=== PATIENT | male | born 1995 | race American Indian/Alaskan Native ===

== ENCOUNTER 2019-12-14 10:26 | Emergency (ER) | payer SELFPAY ==
[2019-12-14 10:35] VITALS: BP 126/77
[2019-12-14] MEDS ORDERED: BUTALB/ACETAMINOPHEN/CAFFEINE TAB PO ONE (11:52)
--- NOTE | 2019-12-14 11:56 | Emergency Department Report ---
ED Headache HPI - General Chief Complaint: Headache Stated Complaint: LEFT SIDED FACIAL PAIN Time Seen by Provider: 12/14/19 11:25 Source: patient Exam Limitations: no limitations - History of Present Illness Initial Comments: This is a 24-year-old male with a history of seizures who who presents to the ED complaining of left-sided head pain x1 week. Patient states about a week ago sharp pain comes and lasts for about 5 seconds at a time and goes away and then comes back throughout the day. Patient states that today is at its worst. Patient states his pain is lasting about 10 seconds before going away. Patient denies any vomiting or nausea or blurry vision or dizziness. Patient denies any trauma. Patient states he has had 3 seizures in the past 3 years and is not on medication. Patient states she does not have a primary care physician or neurologist that he follows up with. Patient denies any other medical condition Timing/Duration: 1 week Quality: sharp, throbbing Head Injury Location: temporal (left) Recent Head Trauma: no recent headache/trauma Allergies/Adverse Reactions: Allergies No Known Allergies Allergy (Unverified 12/14/19 11:58) Home Medications: Ambulatory Orders Butalb/Acetaminophen/Caffeine [Fioricet 50-300-40 mg CAP] 1 cap PO Q8HR #30 cap 12/14/19 ED Review of Systems ROS: Stated complaint: LEFT SIDED FACIAL PAIN Other details as noted in HPI Comment: All other systems reviewed and negative ED Past Medical Hx - Past Medical History Previous Medical History?: Yes Additional medical history: Seizure - Surgical History Past Surgical History?: No - Social History Smoking Status: Never Smoker Substance Use Type: None - Medications Home Medications: Home Medications Medication Instructions Recorded Confirmed Last Taken Type Butalb/Acetaminophen/Caffeine 1 cap PO Q8HR #30 cap 12/14/19 Unknown Rx [Fioricet 50-300-40 mg CAP] ED Physical Exam - General Limitations: No Limitations General appearance: alert, in no apparent distress - Head Head exam: Present: atraumatic, normocephalic - Eye Eye exam: Present: normal appearance, PERRL Pupils: Present: normal accommodation - ENT ENT exam: Present: mucous membranes moist - Neck Neck exam: Present: normal inspection, full ROM. Absent: tenderness - Respiratory Respiratory exam: Present: normal lung sounds bilaterally. Absent: respiratory distress - Cardiovascular Cardiovascular Exam: Present: regular rate, normal rhythm. Absent: systolic murmur, diastolic murmur, rubs, gallop - GI/Abdominal GI/Abdominal exam: Present: soft, normal bowel sounds - Rectal Rectal exam: Present: deferred - Extremities Exam Extremities exam: Present: normal inspection - Back Exam Back exam: Present: normal inspection - Neurological Exam Neurological exam: Present: alert, oriented X3, CN II-XII intact, normal gait - Expanded Neurological Exam Expanded Patient oriented to: Present: person, place, time Speech: Present: fluid speech Cerebellar function: Finger to Nose: Normal Sensory exam: Upper Extremity Light Touch: Normal, Lower Extremity Light Touch: Normal Motor strength exam: RUE: 5, LUE: 5, RLE: 5, LLE: 5 Best Eye Response ([place]): (4) open spontaneously Best Motor Response ([place]): (6) obeys commands Best Verbal Response ([place]): (5) oriented [place] Total: 15 - Psychiatric Psychiatric exam: Present: normal affect, normal mood - Skin Skin exam: Present: warm, dry, intact, normal color. Absent: rash ED Course Vital Signs 12/14/19 10:34 Temperature 97.6 F Pulse Rate 69 Respiratory 16 Rate Blood Pressure 126/77 [Right] O2 Sat by Pulse 100 Oximetry ED Medical Decision Making - Radiology Data Radiology results: report reviewed, image reviewed CT head/brain wo con INDICATION / CLINICAL INFORMATION: 24 years Male; left sided sharp pain. TECHNIQUE: Routine CT head without contrast. All CT scans at this location are performed using CT dose reduction for ALARA by means of automated exposure control. COMPARISON: None. FINDINGS: BRAIN / INTRACRANIAL CONTENTS: No acute hemorrhage, mass effect, midline shift, hydrocephalus, or acute, large territorial infarct. No chronic infarct or atrophy appreciated. No significant white matter abnormality. CRANIOCERVICAL JUNCTION: No significant abnormality. ORBITS: No significant abnormality of visualized orbits. SINUSES / MASTOIDS: No significant abnormality the visualized paranasal sinuses or mastoid air cells. ADDITIONAL FINDINGS: None. IMPRESSION: 1. No focal mass, hemorrhage, hydrocephalus, or acute, large territorial infarct. Signer Name: Hunter Mclain MD, III Signed: 12/14/2019 12:26 PM Workstation Name: [id number] Transcribed By: HR Dictated By: Hunter Mclain MD Electronically Authenticated By: Hunter Mclain MD Signed Date/Time: 12/14/19 1226 - Medical Decision Making 24-year-old male presents with headache. CT scan shows no acute findings see report above Discussed findings with the patient. Discussed with patient to follow-up with the neurologist as referred for management of his seizures. Patient had no recent seizures and has no signs of any other symptoms. Discussed with patient if any worsening symptoms may return to the ED immediately. Patient had no neurological deficit and is to be discharged to follow-up with primary care physician. Critical care attestation.: If time is entered above; I have spent that time in minutes in the direct care of this critically ill patient, excluding procedure time. ED Disposition Clinical Impression: Headache Disposition: DC-01 TO HOME OR SELFCARE Is pt being admited?: No Does the pt Need Aspirin: No Condition: Stable Instructions: Migraine Headache (ED), Tension Headache (ED), Acute Headache (ED) Additional Instructions: Make sure to follow up with the primary care physician as discussed. Take all your medications as you've been prescribed. If you have any worsening symptoms or develop new symptoms please return to ED immediately. Prescriptions: Butalb/Acetaminophen/Caffeine [Fioricet 50-300-40 mg CAP] 1 cap PO Q8HR #30 cap Referrals: NAKIA DICKENS MD [Primary Care Provider] - 3-5 Days WASHINGTON CAMPOS MD [Staff Physician] - 3-5 Days [facility] [Provider Group] - 3-5 Days Forms: Work/School Release Form(ED) Time of Disposition: 12:52
--- NOTE | 2019-12-14 12:31 | Cat Scan Report ---
CT head/brain wo con INDICATION / CLINICAL INFORMATION: 24 years Male; left sided sharp pain. TECHNIQUE: Routine CT head without contrast. All CT scans at this location are performed using CT dos e reduction for ALARA by means of automated exposure control. COMPARISON: None. FINDINGS: BRAIN / INTRACRANIAL CONTENTS: No acute hemorrhage, mass effect, midline shift, hydrocephalus, or acu te, large territorial infarct. No chronic infarct or atrophy appreciated. No significant white matter abnormality. CRANIOCERVICAL JUNCTION: No significant abnormality. ORBITS: No significant abnormality of visualized orbits. SINUSES / MASTOIDS: No significant abnormality the visualized paranasal sinuses or mastoid air cells. ADDITIONAL FINDINGS: None. IMPRESSION: 1. No focal mass, hemorrhage, hydrocephalus, or acute, large territorial infarct. Signer Name: Hunter Mclain MD, III Signed: 12/14/2019 12:26 PM Workstation Name: [id number]
== END 2019-12-14 13:21 | disposition home or self-care (01) ==
LOC: ED 10:26
DX: R51 Headache (principal); R56.9 Unspecified convulsions; Z79.899 Other long term (current) drug therapy
CPT/HCPCS: 70450